=== PATIENT | female | born 1970 | race Caucasian/White ===

== ENCOUNTER 2022-01-23 10:54 | Emergency (ER) | payer BC ==
[2022-01-23] MEDS ORDERED: LORazepam 2 MG/ML SDV IM ONE (12:18)
== END 2022-01-23 14:41 | disposition home or self-care (01) ==
LOC: JD.ED 10:54
DX: F41.0 Panic disorder [episodic paroxysmal anxiety] (principal)
CPT/HCPCS: 36415; 80053; 84443; 85025; 96372; 99283; J2060